=== PATIENT | female | born 1950 ===

== ENCOUNTER 2018-07-14 08:10 | Outpatient (CLI) | payer MEDICARE | END 2018-07-14 08:11 | disposition home or self-care (01) | LOC: LAB 08:10 | DX: N18.3 Chronic kidney disease, stage 3 (moderate) (principal); M10.30 Gout due to renal impairment, unspecified site; E11.9 Type 2 diabetes mellitus without complications; E78.5 Hyperlipidemia, unspecified ==

== ENCOUNTER 2018-07-15 07:57 | Outpatient (CLI) | payer MEDICARE | END 2018-07-15 07:58 | disposition home or self-care (01) | LOC: RAD 07:57 | DX: Z12.31 Encounter for screening mammogram for malignant neoplasm of breast (principal) ==